=== PATIENT | male | born 2000 | race Caucasian/White ===

== ENCOUNTER 2021-12-04 14:00 | Outpatient (RCR) | payer OTHER, SELFPAY ==
--- NOTE | 2021-11-16 16:41 | ONC.NURNOTE ---
Authorization: User: Sandra Rocha Date: 01/04/21 08:23 Type: Eligibility Determination Note... Received request for prior auth for Xolair 300mg every 2 weeks. This has been approved 12/27/2020-12/27/2021 Auth [id number]
[2021-11-20 14:26] VITALS: BP 129/63; PULSE 85; RESP 16; TEMP 36.7; O2SAT 98
[2021-11-20] MEDS: OMALIZUMAB 150 MG PT OWN 300 MG SUBCUT (15:04)
[2021-12-04 13:53] VITALS: BP 95/55; PULSE 72; RESP 16; TEMP 36.6; O2SAT 100
[2021-12-04] MEDS: OMALIZUMAB 150 MG PT OWN 300 MG SUBCUT (14:18)
== END 2021-12-10 23:59 | disposition home or self-care (01) ==
LOC: CCIC 14:00
PROVIDERS: Visit Provider Clinical Nurse Specialist
DX: J45.909 Unspecified asthma, uncomplicated (principal)
CPT/HCPCS: 96372; 96374; 96413

== ENCOUNTER 2022-01-02 14:00 | Outpatient (RCR) | payer OTHER, SELFPAY ==
[2021-12-19 08:16] VITALS: BP 108/77; PULSE 86; RESP 16; TEMP 37.4; O2SAT 100
[2021-12-19] MEDS: OMALIZUMAB 150 MG PT OWN 300 MG SUBCUT (08:44)
--- NOTE | 2021-12-19 09:41 | ONC.NURNOTE ---
Pt here for Xolair today; last dose before orders . Pt called clinic to request new orders; customs entry writer faxed new order form, demographics and previous orders.
[2022-01-02 13:48] VITALS: BP 106/65; PULSE 72; RESP 16; TEMP 36.2; O2SAT 99
[2022-01-02] MEDS: OMALIZUMAB 150 MG PT OWN 300 MG SUBCUT (14:20)
--- NOTE | 2022-01-09 12:06 | ONC.NURNOTE ---
Patient's insurance is denies administration of xolair injections. Patient does have drug shipped to us, but the administration is also being denied due to medical necessity. Ordering providers office was notified of this, and denial was sent to them for appeal. Patient notified that his ordering provider was notified, and that subsequent appointments have been cancelled. He has one dose left that if he is unable to receive here, we will need to find a way to send to where patient will be receiving.
--- NOTE | 2022-01-16 15:51 | ONC.NURNOTE ---
Patient needs to be switched to self administration for his xolair injections. One set of xolair injections are sitting in our pharmacy currently and ticket writer is working with director on administration options. [employer]per also called Rita, with [facility] at [phone] to make sure that with self administration, patient will be receiving prefilled syringes and they will be doing teaching for for this. They said yes to both questions. Patient to be called to set up administration of last set of xolair injections once options have been determined.
--- NOTE | 2022-01-19 09:36 | URNOTE ---
Addendum entered and electronically signed by Jazzmine Frost APRN 01/19/22 14:42: Received call back from Mr. Bravo. The dose of xolair we have for him is not able to be used at his allergy clinic per his phone call with them. He will start self injections through his allergy clinic. If this does not work for him, we will have this dose for him in the future. Otherwise we will throw the dose away when it expires. He is agreeable to this plan. Contacted pharmacy. They will also try to return the dose to the specialty pharmacy. Original Note: Xolair denial, peer to peer Spoke with Dr. Dan from [facility]. Clinical office note from [facility] 09/12/2021 faxed to [phone]. Per Dr. Dan, doses will not be covered because there is no provider documentation that he is not able to self administer xolair. Called and spoke with Mr. Bravo. Administration of xolair dose 01/02/22 was not covered under authorization per letter dated 01/09/2022. Future administrations will also not be covered, unless denial reasons are satisfied. He has option to receive the xolair dose we have if he is willing to pay doss lopez for nursing administration fee - this is prohibitive for him. Or he can work with his work adjustment instructor to obtain autoinjectable form of xolair We can send the dose of xolair we have to him or to his work adjustment instructor if he would like us to. We will wait to hear back from him what he would like us to do with this dose. He was encouraged to contact his work adjustment instructor with this information so that his therapy is not interrupted. He confirms that his work adjustment instructor told him the same information about autoinjection of therapy. WE are happy to assist with any additional care coordination and grateful for the opportunity to care for him.
== END 2022-06-17 23:59 | disposition home or self-care (01) ==
LOC: CCIC 14:00
PROVIDERS: Visit Provider Clinical Nurse Specialist
DX: J45.909 Unspecified asthma, uncomplicated (principal)
CPT/HCPCS: 96372; 96401